=== PATIENT | male | born 1955 | race Caucasian/White ===

== ENCOUNTER 2021-08-30 12:27 | Emergency (ER) | payer OTHER ==
[~2021-08-30 12:27] MED LIST: ASPIRIN EC81 MG PO; BUPROPION HCL150 M1 PO; CHLORTABS4 MG PO; FLONASE 0.05% N16 GM; ISENTRESS400 MG PO; LIPITOR TAB 2020 MG PO; LOSARTAN-HCTZ1 EACH PO; MULTI-DAY VITA1 EACH PO; OMEPRAZOLE40 MG PO; PROVENTIL HFA 61 INH INH; TOPROL XL25 MG PO; TRUVADA 200 MG1 EACH PO; TYLENOL 500 MG500 MG PO; ULTRAM50 MG PO; VITAMIN B-121000 MC3 PO; VITAMIN C 500500 MG PO; ZYRTEC10 M3 PO
[2021-08-30 14:44] LABS: HEMOGLOBIN 16.6 gm/dl (14.0-17.5); RED BLOOD COUNT 5.27 M/UL (4.20-5.50); WHITE BLOOD COUNT 5.7 K/UL (4.5-11.0)
[2021-08-30 15:09] LABS: BUN/CREATININE RATIO 10 (0-10)
[2021-08-30] MEDS ORDERED: PREDNISONE20 MG PO (18:21)
[2021-08-30] MEDS ORDERED: AZITHROMYCIN500 MG PO (18:21)
== END 2021-08-30 19:46 | disposition left against medical advice (07) ==
LOC: ER1 12:27
PROVIDERS: Physician Assistant
DX: J44.1 Chronic obstructive pulmonary disease with (acute) exacerbation (principal); G45.9 Transient cerebral ischemic attack, unspecified; M79.89 Other specified soft tissue disorders; Z20.822 Contact with and (suspected) exposure to COVID-19; E11.9 Type 2 diabetes mellitus without complications; I25.10 Atherosclerotic heart disease of native coronary artery without angina pectoris; I10 Essential (primary) hypertension; Z95.1 Presence of aortocoronary bypass graft; Z79.82 Long term (current) use of aspirin; Z88.0 Allergy status to penicillin; Z88.2 Allergy status to sulfonamides
CPT/HCPCS: 70450; 71045; 80053; 82550; 82553; 83874; 84484; 85025; 85379; 93005; 93971; 94664; 99283; J2930; U0002